=== PATIENT | female | born 1935 | race Caucasian/White ===

== ENCOUNTER → 2016-06-06 | Outpatient (CLI) | payer OTHER | END | disposition home or self-care (01) | LOC: LAB 13:18 | PROVIDERS: ATTEND Internal Medicine | DX: M47.26 Other spondylosis with radiculopathy, lumbar region (principal) | CPT/HCPCS: 36415; 82550; 84443 ==

== ENCOUNTER → 2016-07-15 | Outpatient (CLI) | payer OTHER | END | disposition home or self-care (01) | LOC: LAB 13:22 | PROVIDERS: ATTEND Internal Medicine | DX: E05.90 Thyrotoxicosis, unspecified without thyrotoxic crisis or storm (principal) | CPT/HCPCS: 36415; 84439; 84443; 84481 ==

== ENCOUNTER → 2016-12-16 | Outpatient (CLI) | payer OTHER ==
[2016-12-16 10:11] LABS: Basophils # (auto) 0 uL; Basophils % (auto) 0.5 % (0.0-2.0); Eosinophils # (auto) 0.4 uL; Eosinophils % (auto) 8.5 % (0.0-7.0); Hematocrit 41.3 % (36.0-46.0); Hemoglobin 13.9 g/dL (12.2-16.2); Lymphocytes # (auto) 1.1 uL; Lymphocytes % (auto) 21.8 % (10.0-50.0); Mean Corpuscular Hemoglobin 31.4 pg (28.0-32.0); Mean Corpuscular Hgb Conc. 33.7 g/dL (32.0-36.0); Mean Corpuscular Volume 93.1 fL (80.0-100.0); Mean Platelet Volume 7.7 fL (7.4-10.4); Monocytes # (auto) 0.3 uL; Neutrophils # (auto) 3.1 uL; Neutrophils % (auto) 63.2 % (37.0-80.0); Nucleated Red Blood Cells % 0.1 %; Platelet Count (auto) 192 10^3/uL (140-450); Red Cell Distribution Width 14.5 % (11.6-16.0); White Blood Cell 4.9 10^3/uL (4.4-10.8)
[2016-12-16 10:24] LABS: Urine Bilirubin Negative (Negative); Urine Blood TRACE /uL (Negative); Urine Color Yellow (Yellow); Urine Glucose Normal (Normal); Urine Hyaline Cast FEW /lpf (0 - 2); Urine Ketone Negative (Negative); Urine Mucus FEW (None Seen); Urine Nitrite Negative (Negative); Urine RBC 28 /hpf (0 - 4); Urine Squamous Epithelial Cell MOD /hpf (<5); Urine Urobilinogen Normal (Negative)
[2016-12-16 10:54] LABS: Albumin 3.9 g/dL (3.4-5.0); Bilirubin, Total 0.4 mg/dL (0.2-1.0); Calcium 9.9 mg/dL (8.5-10.1); Potassium 4.3 mmol/L (3.5-5.1); Total Protein 7.6 g/dL (6.4-8.2)
== END | disposition home or self-care (01) ==
LOC: LAB 09:34
PROVIDERS: ATTEND Internal Medicine
DX: I10 Essential (primary) hypertension (principal); E78.2 Mixed hyperlipidemia
CPT/HCPCS: 36415; 80053; 80061; 81001; 84443; 85025; 85652; 86141

== ENCOUNTER → 2018-02-23 | Outpatient (CLI) | payer OTHER ==
[2018-02-23 08:59] LABS: Basophils # (auto) 0 uL; Basophils % (auto) 0.4 % (0.0-2.0); Eosinophils # (auto) 0.2 uL; Eosinophils % (auto) 4.1 % (0.0-7.0); Hematocrit 41.7 % (36.0-46.0); Hemoglobin 14.1 g/dL (12.2-16.2); Lymphocytes # (auto) 1.1 uL; Lymphocytes % (auto) 25.7 % (10.0-50.0); Mean Corpuscular Hgb Conc. 33.8 g/dL (32.0-36.0); Mean Corpuscular Volume 91.8 fL (80.0-100.0); Monocytes # (auto) 0.3 uL; Monocytes % (auto) 7.3 % (0.0-12.0); Neutrophils # (auto) 2.7 uL; Neutrophils % (auto) 62.5 % (37.0-80.0); Nucleated Red Blood Cells % 0.1 %; Platelet Count (auto) 207 10^3/uL (140-450); Red Blood Cells 4.54 10^6/uL (4.0-5.20); Red Cell Distribution Width 13.8 % (11.8-14.3); Urine Bacteria FEW /hpf (None Seen); Urine Blood Negative /uL (Negative); Urine Specific Gravity 1.016 (1.001-1.035); Urine WBC 3 /hpf (0 - 5); White Blood Cell 4.4 10^3/uL (4.4-10.8)
[2018-02-23 09:21] LABS: BUN/Creatinine Ratio 27.2; Calcium 9.3 mg/dL (8.5-10.1); Potassium 4.8 mmol/L (3.5-5.1); Uric Acid 5.9 mg/dL (2.6-6.0)
[2018-02-23 09:25] LABS: Bilirubin, Total 0.7 mg/dL (0.2-1.0); Total Protein 7.8 g/dL (6.4-8.2)
== END | disposition home or self-care (01) ==
LOC: LAB 08:30
PROVIDERS: ATTEND Physician Assistant
DX: E03.9 Hypothyroidism, unspecified (principal); E11.9 Type 2 diabetes mellitus without complications; M35.3 Polymyalgia rheumatica; E79.0 Hyperuricemia without signs of inflammatory arthritis and tophaceous disease
CPT/HCPCS: 36415; 80053; 80061; 81001; 83036; 84443; 84550; 85025

== ENCOUNTER → 2019-01-17 | Outpatient (CLI) | payer OTHER ==
[2019-01-17 10:49] LABS: Basophils # (auto) 0 uL; Basophils % (auto) 0.6 % (0.0-2.0); Eosinophils # (auto) 0.2 uL; Eosinophils % (auto) 5.1 % (0.0-7.0); Hematocrit 42.6 % (36.0-46.0); Hemoglobin 14.9 g/dL (12.2-16.2); Lymphocytes # (auto) 0.8 uL; Lymphocytes % (auto) 20.5 % (10.0-50.0); Mean Corpuscular Hemoglobin 32.1 pg (28.0-32.0); Mean Corpuscular Hgb Conc. 34.9 g/dL (32.0-36.0); Mean Corpuscular Volume 91.7 fL (80.0-100.0); Monocytes # (auto) 0.3 uL; Monocytes % (auto) 7.1 % (0.0-12.0); Neutrophils # (auto) 2.6 uL; Neutrophils % (auto) 66.7 % (37.0-80.0); Nucleated Red Blood Cells % 0.1 %; Platelet Count (auto) 206 10^3/uL (140-450); Red Blood Cells 4.65 10^6/uL (4.0-5.20); Red Cell Distribution Width 14.2 % (11.8-14.3); White Blood Cell 3.8 10^3/uL (4.4-10.8)
[2019-01-17 10:58] LABS: Urine Bacteria NONE SEEN /hpf (None Seen); Urine Blood Negative /uL (Negative); Urine Hyaline Cast FEW /lpf (0 - 2); Urine Mucus FEW (None Seen); Urine Specific Gravity 1.017 (1.001-1.035); Urine WBC 1 /hpf (0 - 5)
[2019-01-17 11:12] LABS: Potassium 4.3 mmol/L (3.5-5.1)
[2019-01-17 11:24] LABS: Bilirubin, Total 0.6 mg/dL (0.2-1.0); Calcium 9.5 mg/dL (8.5-10.1); Total Protein 8.1 g/dL (6.4-8.2)
== END | disposition home or self-care (01) ==
LOC: LAB 09:29
PROVIDERS: ATTEND Physician Assistant
DX: E11.9 Type 2 diabetes mellitus without complications (principal); E03.9 Hypothyroidism, unspecified; E79.0 Hyperuricemia without signs of inflammatory arthritis and tophaceous disease; I10 Essential (primary) hypertension; R94.6 Abnormal results of thyroid function studies
CPT/HCPCS: 36415; 80053; 80061; 81001; 83036; 84443; 85025

== ENCOUNTER → 2020-02-03 | Outpatient (CLI) | payer OTHER ==
[2020-02-03 09:01] LABS: Basophils # (auto) 0 10 ^3/uL (0-0.2); Basophils % (auto) 0.5 % (0.0-2.0); Eosinophils # (auto) 0.2 10 ^3/uL (0-0.8); Eosinophils % (auto) 5.3 % (0.0-7.0); Hematocrit 39.8 % (36.0-46.0); Hemoglobin 13.3 g/dL (12.2-16.2); Lymphocytes # (auto) 0.7 10 ^3/uL (0.4-5.4); Lymphocytes % (auto) 18.4 % (10.0-50.0); Mean Corpuscular Hemoglobin 31.2 pg (28.0-32.0); Mean Corpuscular Hgb Conc. 33.4 g/dL (32.0-36.0); Mean Corpuscular Volume 93.6 fL (80.0-100.0); Monocytes # (auto) 0.3 10 ^3/uL (0-1.3); Monocytes % (auto) 7.1 % (0.0-12.0); Neutrophils # (auto) 2.7 10 ^3/uL (1.6-8.6); Neutrophils % (auto) 68.7 % (37.0-80.0); Nucleated Red Blood Cells % 0.1 %; Platelet Count (auto) 187 10^3/uL (140-450); Red Blood Cells 4.25 10^6/uL (4.0-5.20); Red Cell Distribution Width 14.4 % (11.8-14.3)
[2020-02-03 10:43] LABS: Potassium 4.9 mmol/L (3.5-5.1)
[2020-02-03 10:57] LABS: Albumin 3.9 g/dL (3.4-5.0); Bilirubin, Total 0.4 mg/dL (0.2-1.0); Calcium 9.3 mg/dL (8.5-10.1); Total Protein 7.6 g/dL (6.4-8.2); Uric Acid 5.9 mg/dL (2.6-6.0)
== END | disposition home or self-care (01) ==
LOC: LAB 08:43
PROVIDERS: ATTEND Physician Assistant
DX: E78.1 Pure hyperglyceridemia (principal); I12.9 Hypertensive chronic kidney disease with stage 1 through stage 4 chronic kidney disease, or unspecified chronic kidney disease; N18.30 Chronic kidney disease, stage 3 unspecified; M35.3 Polymyalgia rheumatica; E79.0 Hyperuricemia without signs of inflammatory arthritis and tophaceous disease; E03.9 Hypothyroidism, unspecified; R73.9 Hyperglycemia, unspecified
CPT/HCPCS: 36415; 80053; 80061; 84443; 84550; 85025

== ENCOUNTER → 2020-12-21 | Outpatient (CLI) | payer OTHER ==
[2020-12-21 09:39] LABS: Cholesterol 201 mg/dL (< 200); HDL Cholesterol 48 mg/dL (40-59); LDL Cholesterol 114 mg/dL (< 100); Triglycerides 207 mg/dL (< 150)
== END | disposition home or self-care (01) ==
LOC: LAB 08:52
PROVIDERS: ATTEND Nurse Practitioner Family
DX: E78.1 Pure hyperglyceridemia (principal); E78.2 Mixed hyperlipidemia
CPT/HCPCS: 36415; 80061

== ENCOUNTER → 2021-06-05 | Outpatient (CLI) | payer OTHER ==
[2021-06-05 11:52] LABS: Potassium 4.5 mmol/L (3.5-5.1)
[2021-06-05 12:02] LABS: Albumin 3.7 g/dL (3.4-5.0); BUN/Creatinine Ratio 21.1; Bilirubin, Total 0.5 mg/dL (0.2-1.0); Calcium 9.1 mg/dL (8.5-10.1); Total Protein 7.5 g/dL (6.4-8.2)
[2021-06-05 14:31] LABS: Basophils # (auto) 0 10 ^3/uL (0-0.2); Basophils % (auto) 0.5 % (0.0-2.0); Eosinophils # (auto) 0.2 10 ^3/uL (0-0.8); Eosinophils % (auto) 5.3 % (0.0-7.0); Hematocrit 40.9 % (36.0-46.0); Hemoglobin 13.7 g/dL (12.2-16.2); Lymphocytes # (auto) 0.8 10 ^3/uL (0.4-5.4); Lymphocytes % (auto) 18.8 % (10.0-50.0); Mean Corpuscular Hemoglobin 30.5 pg (28.0-32.0); Mean Corpuscular Hgb Conc. 33.4 g/dL (32.0-36.0); Mean Corpuscular Volume 91.3 fL (80.0-100.0); Monocytes # (auto) 0.3 10 ^3/uL (0-1.3); Neutrophils # (auto) 2.9 10 ^3/uL (1.6-8.6); Neutrophils % (auto) 68.4 % (37.0-80.0); Nucleated Red Blood Cells % 0.2 %; Red Blood Cells 4.48 10^6/uL (4.0-5.20); Red Cell Distribution Width 14.8 % (11.8-14.3); White Blood Cell 4.3 10^3/uL (4.4-10.8)
== END | disposition home or self-care (01) ==
LOC: LAB 09:57
PROVIDERS: ATTEND Nurse Practitioner Family
DX: Z00.00 Encounter for general adult medical examination without abnormal findings (principal); E11.9 Type 2 diabetes mellitus without complications; I10 Essential (primary) hypertension; E78.1 Pure hyperglyceridemia
CPT/HCPCS: 36415; 80053; 80061; 82043; 83036; 84439; 84443; 85025

== ENCOUNTER → 2022-05-29 | Outpatient (CLI) | payer OTHER ==
[2022-05-29 11:11] LABS: Basophils # (auto) 0 10 ^3/uL (0-0.2); Basophils % (auto) 0.6 % (0.0-2.0); Eosinophils # (auto) 0.2 10 ^3/uL (0-0.8); Eosinophils % (auto) 3.8 % (0.0-7.0); Hemoglobin 13.5 g/dL (12.2-16.2); Lymphocytes # (auto) 1.2 10 ^3/uL (0.4-5.4); Lymphocytes % (auto) 21.6 % (10.0-50.0); Mean Corpuscular Hemoglobin 31.3 pg (28.0-32.0); Mean Corpuscular Hgb Conc. 33.8 g/dL (32.0-36.0); Mean Corpuscular Volume 92.5 fL (80.0-100.0); Monocytes # (auto) 0.3 10 ^3/uL (0-1.3); Monocytes % (auto) 6.3 % (0.0-12.0); Neutrophils # (auto) 3.7 10 ^3/uL (1.6-8.6); Neutrophils % (auto) 67.7 % (37.0-80.0); Nucleated Red Blood Cells % 0.1 %; Red Blood Cells 4.33 10^6/uL (4.0-5.20); Red Cell Distribution Width 14.3 % (11.8-14.3); White Blood Cell 5.5 10^3/uL (4.4-10.8)
[2022-05-29 11:50] LABS: Potassium 4.7 mmol/L (3.5-5.1)
[2022-05-29 11:57] LABS: BUN/Creatinine Ratio 23.4; Bilirubin, Total 0.6 mg/dL (0.2-1.0); Calcium 9.6 mg/dL (8.5-10.1); Total Protein 7.7 g/dL (6.4-8.2)
== END | disposition home or self-care (01) ==
LOC: LAB 10:31
PROVIDERS: ATTEND Nurse Practitioner Family
DX: E11.22 Type 2 diabetes mellitus with diabetic chronic kidney disease (principal); N18.9 Chronic kidney disease, unspecified; E03.9 Hypothyroidism, unspecified; E78.2 Mixed hyperlipidemia
CPT/HCPCS: 36415; 80053; 80061; 82043; 83036; 84439; 84443; 85025

== ENCOUNTER → 2023-02-02 | Outpatient (CLI) | payer OTHER ==
[2023-02-02 09:26] LABS: Basophils # (auto) 0 10 ^3/uL (0-0.2); Basophils % (auto) 0.8 % (0.0-2.0); Eosinophils # (auto) 0.2 10 ^3/uL (0-0.8); Eosinophils % (auto) 4.3 % (0.0-7.0); Hematocrit 38.6 % (36.0-46.0); Hemoglobin 12.8 g/dL (12.2-16.2); Lymphocytes # (auto) 1.1 10 ^3/uL (0.4-5.4); Lymphocytes % (auto) 26.7 % (10.0-50.0); Mean Corpuscular Hemoglobin 30.5 pg (28.0-32.0); Mean Corpuscular Hgb Conc. 33.2 g/dL (32.0-36.0); Mean Corpuscular Volume 92.1 fL (80.0-100.0); Monocytes # (auto) 0.3 10 ^3/uL (0-1.3); Monocytes % (auto) 7.4 % (0.0-12.0); Neutrophils # (auto) 2.6 10 ^3/uL (1.6-8.6); Neutrophils % (auto) 60.8 % (37.0-80.0); Nucleated Red Blood Cells % 0.1 %; Red Blood Cells 4.19 10^6/uL (4.0-5.20); Red Cell Distribution Width 14.9 % (11.8-14.3); White Blood Cell 4.2 10^3/uL (4.4-10.8)
[2023-02-02 10:16] LABS: Alanine Aminotransferase 66 U/L (7-40); Albumin 4.4 g/dL (3.2-4.8); Alkaline Phosphatase 73 U/L (46-116); Anion Gap 6 (5-15); Aspartate Aminotransferase 66 U/L (13-40); BUN/Creatinine Ratio 19.8 (10.0-20.0); Blood Urea Nitrogen 18 mg/dL (9-23); Calcium 9.1 mg/dL (8.5-10.1); Carbon Dioxide 29 mmol/L (20-30); Chloride 106 mmol/L (98-107); Cholesterol 170 mg/dL (< 200); Glucose 123 mg/dL (74-106); HDL Cholesterol 47 mg/dL (40-59); LDL Cholesterol 86 mg/dL (< 100); Potassium 4.6 mmol/L (3.5-5.1); Sodium 141 mmol/L (136-145); Triglycerides 199 mg/dL (< 150)
[2023-02-02 10:28] LABS: Bilirubin, Total 0.4 mg/dL (0.2-1.0)
== END | disposition home or self-care (01) ==
LOC: LAB 09:07
PROVIDERS: ATTEND Nurse Practitioner Family
DX: H35.30 Unspecified macular degeneration (principal); E03.9 Hypothyroidism, unspecified
CPT/HCPCS: 36415; 80053; 80061; 83036; 84439; 84443; 85025

== ENCOUNTER → 2023-06-01 | Outpatient (CLI) | payer OTHER ==
[2023-06-01 10:48] LABS: Basophils # (auto) 0 10 ^3/uL (0-0.2); Basophils % (auto) 0.8 % (0.0-2.0); Eosinophils # (auto) 0.3 10 ^3/uL (0-0.8); Eosinophils % (auto) 5.9 % (0.0-7.0); Hemoglobin 13.7 g/dL (12.2-16.2); Lymphocytes # (auto) 1.1 10 ^3/uL (0.4-5.4); Lymphocytes % (auto) 24.7 % (10.0-50.0); Mean Corpuscular Hemoglobin 30.9 pg (28.0-32.0); Mean Corpuscular Hgb Conc. 33.5 g/dL (32.0-36.0); Mean Corpuscular Volume 92.1 fL (80.0-100.0); Monocytes # (auto) 0.4 10 ^3/uL (0-1.3); Monocytes % (auto) 8.3 % (0.0-12.0); Neutrophils # (auto) 2.7 10 ^3/uL (1.6-8.6); Neutrophils % (auto) 60.3 % (37.0-80.0); Nucleated Red Blood Cells % 0.1 %; Red Blood Cells 4.45 10^6/uL (4.0-5.20); Red Cell Distribution Width 14.5 % (11.8-14.3); White Blood Cell 4.5 10^3/uL (4.4-10.8)
[2023-06-01 11:27] LABS: Alanine Aminotransferase 27 U/L (7-40); Albumin 4.5 g/dL (3.2-4.8); Alkaline Phosphatase 59 U/L (46-116); Anion Gap 6 (5-15); Aspartate Aminotransferase 27 U/L (13-40); Blood Urea Nitrogen 16 mg/dL (9-23); Calcium 9.5 mg/dL (8.5-10.1); Carbon Dioxide 28 mmol/L (20-30); Chloride 105 mmol/L (98-107); Cholesterol 188 mg/dL (< 200); Glucose 122 mg/dL (74-106); HDL Cholesterol 58 mg/dL (40-59); LDL Cholesterol 103 mg/dL (< 100); Potassium 4.5 mmol/L (3.5-5.1); Sodium 139 mmol/L (136-145); Triglycerides 156 mg/dL (< 150)
[2023-06-01 11:28] LABS: Bilirubin, Total 0.8 mg/dL (0.2-1.0); Total Protein 7.2 g/dL (5.7-8.2)
[2023-06-01 11:56] LABS: Creatinine, Urine 76.83 mg/dL (30.0-125.0)
[2023-06-01 11:58] LABS: Micro Albumin < 3.0 mg/L (<30.0)
== END | disposition home or self-care (01) ==
LOC: LAB 10:26
DX: I12.9 Hypertensive chronic kidney disease with stage 1 through stage 4 chronic kidney disease, or unspecified chronic kidney disease (principal); E11.22 Type 2 diabetes mellitus with diabetic chronic kidney disease; N18.31 Chronic kidney disease, stage 3a; E03.9 Hypothyroidism, unspecified
CPT/HCPCS: 36415; 80053; 80061; 82043; 82570; 83036; 84439; 84443; 85025

== ENCOUNTER → 2024-02-12 | Outpatient (CLI) | payer OTHER ==
[2024-02-12 13:57] LABS: Urine Bacteria FEW /hpf (None Seen); Urine Blood Negative /uL (Negative); Urine Clarity Turbid (Clear); Urine Color Colorless (Yellow); Urine Protein, UAD Negative (Negative); Urine Specific Gravity 1.008 (1.001-1.035); Urine Urobilinogen Normal (Negative); Urine WBC 67 /hpf (0 - 5); Urine WBC Clumps PRESENT /hpf (None Seen)
== END | disposition home or self-care (01) ==
LOC: LAB 13:22
PROVIDERS: ATTEND Registered Nurse
DX: N39.0 Urinary tract infection, site not specified (principal)
CPT/HCPCS: 81001; 87086

== ENCOUNTER → 2024-02-25 | Outpatient (CLI) | payer OTHER | END | disposition home or self-care (01) | LOC: LAB 05:53 | PROVIDERS: ATTEND Nurse Practitioner Family | DX: N39.0 Urinary tract infection, site not specified (principal) | CPT/HCPCS: 87086 ==

== ENCOUNTER → 2024-03-01 | Outpatient (CLI) | payer OTHER | END | disposition home or self-care (01) | LOC: LAB 15:31 | PROVIDERS: ATTEND Nurse Practitioner Family | DX: N39.0 Urinary tract infection, site not specified (principal) | CPT/HCPCS: 87086 ==

== ENCOUNTER → 2024-04-22 | Outpatient (CLI) | payer OTHER | END | disposition home or self-care (01) | LOC: LAB 11:16 | PROVIDERS: ATTEND Nurse Practitioner Family | DX: N39.0 Urinary tract infection, site not specified (principal) | CPT/HCPCS: 87086; 87088; 87186 ==

== ENCOUNTER → 2024-06-09 | Outpatient (CLI) | payer OTHER ==
[2024-06-09 10:30] LABS: Basophils # (auto) 0 10 ^3/uL (0-0.2); Basophils % (auto) 0.5 % (0.0-2.0); Eosinophils # (auto) 0.2 10 ^3/uL (0-0.8); Eosinophils % (auto) 3.2 % (0.0-7.0); Hematocrit 42.3 % (36.0-46.0); Hemoglobin 13.9 g/dL (12.2-16.2); Lymphocytes # (auto) 1.2 10 ^3/uL (0.4-5.4); Lymphocytes % (auto) 22.8 % (10.0-50.0); Mean Corpuscular Hemoglobin 30.1 pg (28.0-32.0); Mean Corpuscular Hgb Conc. 32.8 g/dL (32.0-36.0); Mean Corpuscular Volume 91.7 fL (80.0-100.0); Monocytes # (auto) 0.4 10 ^3/uL (0-1.3); Monocytes % (auto) 7.2 % (0.0-12.0); Neutrophils # (auto) 3.4 10 ^3/uL (1.6-8.6); Neutrophils % (auto) 66.3 % (37.0-80.0); Nucleated Red Blood Cells % 0.1 %; Platelet Count (auto) 193 10^3/uL (140-450); Red Blood Cells 4.62 10^6/uL (4.0-5.20); Red Cell Distribution Width 14.8 % (11.8-14.3); White Blood Cell 5.2 10^3/uL (4.4-10.8)
[2024-06-09 11:02] LABS: Alanine Aminotransferase 25 U/L (7-40); Alkaline Phosphatase 68 U/L (46-116); Anion Gap 8 (5-15); Aspartate Aminotransferase 23 U/L (13-40); BUN/Creatinine Ratio 20.2 (10.0-20.0); Bilirubin, Total 0.5 mg/dL (0.2-1.0); Blood Urea Nitrogen 20 mg/dL (9-23); Calcium 9.9 mg/dL (8.7-10.4); Carbon Dioxide 28 mmol/L (20-31); Chloride 106 mmol/L (98-107); Cholesterol 181 mg/dL (< 200); HDL Cholesterol 56 mg/dL (40-59); LDL Cholesterol 97 mg/dL (< 100); Potassium 4.4 mmol/L (3.5-5.1); Sodium 142 mmol/L (136-145); Total Protein 7.4 g/dL (5.7-8.2); Triglycerides 123 mg/dL (< 150)
[2024-06-09 11:11] LABS: Albumin 4.8 g/dL (3.2-4.8); Glucose 122 mg/dL (74-106)
== END | disposition home or self-care (01) ==
LOC: LAB 10:03
PROVIDERS: ATTEND Nurse Practitioner Family
DX: I12.9 Hypertensive chronic kidney disease with stage 1 through stage 4 chronic kidney disease, or unspecified chronic kidney disease (principal); E11.22 Type 2 diabetes mellitus with diabetic chronic kidney disease; N18.31 Chronic kidney disease, stage 3a
CPT/HCPCS: 36415; 80053; 80061; 82043; 83036; 84443; 85025